=== PATIENT | male | born 1985 | race Caucasian/White ===

== ENCOUNTER → 2019-01-22 | Emergency (ER) | payer OTHER ==
[~2019-01-22] VITALS: Ht 180.3 cm; Wt 117.4 kg
[~2019-01-22] MED LIST: LORAZEPAM 1 MG TAB PO ONE
[2019-01-22 15:20] VITALS: BP 151/70; PULSE 98; RESP 18; Ht 180.3 cm; Wt 117.4 kg
--- NOTE | 2019-01-22 15:29 | EN ---
Date/Time of Note Date/Time of Note DATE: 01/22/19 TIME: 15:28 ER Progress Note [id number] male with shakiness and sensation of anxiety since weekend. Dry mouth also. Okay for further evaluation and possible medication in ED 2. Patient not driving. PAULO BRYAN MD Jan 22, 2019 15:29
--- NOTE | 2019-01-22 17:25 | ERD ---
ER Documentation Chief Complaint Chief Complaint anxiety today HPI This is a 33-year-old male presenting to the emergency department complaining of intermittent anxiety which began earlier today while at work. He does report increased stress due to work in his family. He is crying because his dog is sick and he is worried about him. He has had intermittent palpitations but denies any palpitations currently. He denies any history of anxiety in the past. He adamantly denies any homicidal or suicidal ideation. He denies any chest pain, shortness of breath, abdominal pain, nausea, vomiting, diarrhea, or other symptoms at this time. ROS All systems reviewed and are negative except as per history of present illness. Allergies Allergies: Coded Allergies: No Known Allergy (Unverified , 01/22/19) PMhx/Soc Hx Psychiatric Problems: Yes (anxiety) Hx Miscellaneous Medical Probl: Yes (gout ) Hx Alcohol Use: No Hx Substance Use: Yes Hx Tobacco Use: No Smoking Status: Current some day smoker FmHx Family History: No diabetes Physical Exam Vitals Vital Signs Date Temp Pulse Resp B/P (MAP) Pulse Ox O2 O2 Flow FiO2 Time Delivery Rate 01/22/19 98.1 98 18 151/70 98 15:20 (97) Physical Exam Const: No acute distress Head: Atraumatic Eyes: Normal Conjunctiva ENT: Normal External Ears, Nose and Mouth. Neck: Full range of motion. No meningismus. Resp: Clear to auscultation bilaterally Cardio: Regular rate and rhythm, no murmurs Skin: No petechiae or rashes Back: No midline or flank tenderness Ext: No cyanosis, or edema Neur: Awake and alert Psych: Anxious, tearful. Results 24 hrs Laboratory Tests Test 01/22/19 16:32 Bedside Glucose 108 mg/dL Current Medications Medications Dose Sig/Fadia Start Time Status Last (Trade) Ordered Route PRN Stop Time Admin Dose Reason Admin Lorazepam 1 mg ONCE ONCE 01/22/19 DC 01/22/19 (Ativan) PO 16:30 01/22/19 16:29 16:31 Procedures/MDM 33-year-old male presents to the emergency department complaining of acute anxiety which began today. Patient was administered Ativan in the department and with significant Adam improved on reevaluation. Initially, he was tearful and slightly anxious but after administration of Ativan he improved dramati kai. He adamantly denies any homicidal or suicidal ideation. I do not cardiac etiology or other emergent process. Patient can be safely discharged home with instructions to follow-up with psychiatrist and psychologist. He was advised to return here immediately for any new or worsening or concerning symptoms. The patient was in agreement with the diagnosis, plan, need for fol low-up, return precautions. EKG: Interpreted by ED physician. Rate/Rhythm: Normal Sinus Rhythm with a rate of 75 bpm. QRS, ST, T-waves: No changes consistent w/ acute ischemia Impression: No evidence of ischemia or arrhythmia Patient's blood pressure was elevated (>120/80) but appears stable without evidence of hypertension emergency or urgency. The patient is to follow-up and pursue outpatient monitoring and therapy with their primary care physician within 1 week and return immediately if they have any new, worsening, or concerning symptoms. Departure Diagnosis: Primary Impression: Anxiety attack Condition: Fair Patient Instructions: Anxiety Reaction Referrals: COMM[facility]ITY CLINICS YOU HAVE RECEIVED A MEDICAL SCREENING EXAM AND THE RESULTS INDICATE THAT YOU DO NOT HAVE A CONDITION THAT REQUIRES URGENT TREATMENT IN THE EMERGENCY DEPARTMENT. FURTHER EVALUATION AND TREATMENT OF YOUR CONDITION CAN WAIT UNTIL YOU ARE SEEN IN YOUR DOCTORS OFFICE WITHIN THE NEXT 1-2 DAYS. IT IS YOUR RESPONSIBILITY TO MAKE AN APPOINTMENT FOR FOLOW-UP CARE. IF YOU HAVE A PRIMARY DOCTOR --you should call your primary doctor and schedule an appointment IF YOU DO NOT HAVE A PRIMARY DOCTOR YOU CAN CALL OUR PHYSICIAN REFERRAL HOTLINE AT IF YOU CAN NOT AFFORD TO SEE A PHYSICIAN YOU CAN CHOSE FROM THE FOLLOWING [facility] [address] [facility]. [facility] [address] [facility] [facility] [address] [facility] [address] [facility]. [facility] [address] [facility]. [facility]. [address] Additional Instructions: Call your primary care doctor TOMORROW for an appointment during the next 1-2 days.See the doctor sooner or return here if your condition worsens before your appointment time. ANTONIA GOLDMAN PA-C Jan 22, 2019 17:25
== END | disposition home or self-care (01) ==
LOC: FTE 15:12
DX: F41.9 Anxiety disorder, unspecified (principal); F17.210 Nicotine dependence, cigarettes, uncomplicated; R00.2 Palpitations
CPT/HCPCS: 82962; 93005